=== PATIENT | male | born 1985 | race Caucasian/White ===

== ENCOUNTER 2019-06-20 23:56 | Emergency (ER) | payer SELFPAY ==
--- NOTE | 2019-06-21 01:10 | EDPHYS ---
Physician Documentation [facility] Name: Anthony Adams Age: 33 yrs Sex: Male : 1985 Arrival Date: 06/21/2019 Time: 00:06 Bed 18 Private MD: DEON Physician Minesh Lewis HPI: 06/21 01:03 This 33 yrs old Male presents to ER via Ambulatory with complaints of Ear cp Pain. 01:03 The patient presents with pain, that is acute, tenderness. The complaints affect the cp left ear. Onset: The symptoms/episode began/occurred today, about 1200. Associated signs and symptoms: Pertinent positives: sinus congestion and drainage, sore throat, cough. Severity of symptoms: in the emergency department the symptoms are unchanged despite home interventions. Historical: - Allergies: 00:07 No Known Allergies; lp1 - Home Meds: 00:07 Claritin 10 mg Oral tab 1 tab once daily [Active]; lp1 - PMHx: 00:07 seasonal allergies; ADD/ADHD; lp1 - PSHx: 00:07 None; lp1 - Immunization history:: Adult Immunizations up to date. - Social history:: Smoking status: Patient/guardian denies using tobacco. - Ebola Screening: : No symptoms or risks identified at this time. ROS: 01:04 Eyes: Negative for injury, pain, redness, and discharge. cp 01:04 Constitutional: Negative for body aches, chills, fever, poor PO intake. 01:04 ENT: Positive for ear pain, sinus congestion, sore throat, Negative for drainage from ear(s), difficulty swallowing, difficulty handling secretions. 01:04 Neck: Negative for pain with movement, pain at rest, stiffness, swollen nodes, tenderness. 01:04 Respiratory: Positive for cough, Negative for shortness of breath, wheezing. 01:04 Abdomen/GI: Negative for abdominal pain, nausea, vomiting, and diarrhea, constipation. 01:04 Skin: Negative for rash. 01:04 Neuro: Negative for headache. 01:04 All other systems are negative. Exam: 01:05 Head/Face: Normocephalic, atraumatic. cp 01:05 Constitutional: The patient appears in no acute distress, alert, awake, non-toxic, well developed, well nourished. 01:05 Eyes: Periorbital structures: appear normal, Conjunctiva: normal, no exudate, no injection, Lids and lashes: appear normal, bilaterally. 01:05 ENT: External ear(s): are unremarkable, Ear canal(s): are normal, clear, TM's: bulging, on the left, erythema, that is marked, on the left, Examination of the other ear shows no obvious abnormality, Nose: is normal, Mouth: Lips: moist, Oral mucosa: pink and intact, moist, Posterior pharynx: is normal, airway is patent, no erythema, no exudate, Tonsils: are normal in appearance, Voice: is normal. 01:05 Neck: ROM/movement: is normal, is supple, without pain, no meningismus, no nuchal rigidity. 01:05 Chest/axilla: Inspection: normal. 01:05 Cardiovascular: Rate: normal, Rhythm: regular. 01:05 Respiratory: the patient does not display signs of respiratory distress, Respirations: normal, no use of accessory muscles, no retractions, no splinting, no tachypnea, labored breathing, is not present, Breath sounds: are clear throughout, no decreased breath sounds, no stridor, no wheezing. 01:05 Abdomen/GI: Exam negative for discomfort, distension, guarding, Inspection: abdomen appears normal. 01:05 Skin: no rash present. Vital Signs: 00:07 BP 125 / 79; Pulse 62; Resp 16; Temp 98.1(O); Pulse Ox 99% on R/A; Weight 77.11 kg (R); lp1 Height 5 ft. 10 in. (177.80 cm); Pain 9/10; 00:07 Body Mass Index 24.39 (77.11 kg, 177.80 cm) lp1 MDM: 00:49 Patient medically screened. cp 01:07 Differential diagnosis: otitis media, otitis externa, ruptured TM, sinusitis, strep cp throat. Data reviewed: vital signs, nurses notes. Response to treatment: the patient's symptoms have markedly improved after treatment, and as a result, I will discharge patient. Administered Medications: 01:15 Drug: Augmentin 875 mg Route: PO; fc 01:25 Follow up: Response: No adverse reaction cr4 01:15 Drug: Ibuprofen 800 mg Route: PO; fc 01:24 Follow up: Response: No adverse reaction cr4 Disposition: 06/21/19 01:08 Discharged to Home. Impression: Otitis media, unspecified, left ear. - Condition is Stable. - Discharge Instructions: Otitis Media, Adult. - Prescriptions for Augmentin 875- 125 mg Oral Tablet - take 1 tablet by ORAL route every 12 hours for 10 days; 20 tablet. Medrol (Kenneth) 4 mg Oral Tablets, Dose Pack - take 1 tablet by ORAL route as directed - follow package instructions; 1 packet. - Medication Reconciliation Form, Thank You Letter, Antibiotic Education, Prescription Opioid Use form. - Follow up: Private Physician; When: 2 - 3 days; Reason: Worsening of condition. - Problem is new. - Symptoms have improved. Addendum: 06/23/2019 08:40 Co-signature as Attending Physician, Minesh Lewis MD I agree with the assessment and c bazan plan of care. Signatures: Minesh Lewis MD MD cha Chretien, Felicia RN RN fc Rohini Birch RN RN cr4 Margareth Larose RN RN lp1 Minesh Wei PA PA cp Corrections: (The following items were deleted from the chart) 06/21 01:26 01:08 06/21/2019 01:08 Discharged to Home. Impression: Otitis media, unspecified, left cr4 ear. Condition is Stable. Forms are Medication Reconciliation Form, Thank You Letter, Antibiotic Education, Prescription Opioid Use. Follow up: Private Physician; When: 2 - 3 days; Reason: Worsening of condition. Problem is new. Symptoms have improved. cp
--- NOTE | 2019-06-21 01:10 | ER ---
Nurse's Notes [facility] Name: Anthony Adams Age: 33 yrs Sex: Male : 1985 Arrival Date: 06/21/2019 Time: 00:06 Bed 18 Private MD: Diagnosis: Otitis media, unspecified, left ear Presentation: 06/21 00:06 Presenting complaint: Patient states: Left ear pain that has worsened throughout day; lp1 congestion, runny nose, sore throat since Sunday. Transition of care: patient was not received from another setting of care. Onset of symptoms was June 21, 2019. Risk Assessment: Do you want to hurt yourself or someone else? Patient reports no desire to harm self or others. Initial Sepsis Screen: Does the patient meet any 2 criteria? No. Patient's initial sepsis screen is negative. Does the patient have a suspected source of infection? No. Patient's initial sepsis screen is negative. Care prior to arrival: None. 00:06 Method Of Arrival: Ambulatory lp1 00:06 Acuity: DOMINGO 4 lp1 Historical: - Allergies: 00:07 No Known Allergies; lp1 - Home Meds: 00:07 Claritin 10 mg Oral tab 1 tab once daily [Active]; lp1 - PMHx: 00:07 seasonal allergies; ADD/ADHD; lp1 - PSHx: 00:07 None; lp1 - Immunization history:: Adult Immunizations up to date. - Social history:: Smoking status: Patient/guardian denies using tobacco. - Ebola Screening: : No symptoms or risks identified at this time. Screenin:09 Abuse screen: Denies threats or abuse. Denies injuries from another. Nutritional lp1 screening: No deficits noted. Tuberculosis screening: No symptoms or risk factors identified. Fall Risk None identified. Assessment: 00:59 General: Appears uncomfortable, slender, well groomed, Behavior is calm, cooperative, cr4 appropriate for age. Neuro: Denies weakness dizziness, difficulty swallowing, numbness headache. Cardiovascular: Denies chest pain, fatigue, lightheadedness, nausea, shortness of breath. Respiratory: Reports cough that is productive, hacking. GI: No signs and/or symptoms were reported involving the gastrointestinal system. : No signs and/or symptoms were reported regarding the genitourinary system. EENT: Reports decreased hearing in left ear nasal congestion nasal discharge pain in left ear. Derm: No deficits noted. Musculoskeletal: No signs and/or symptoms reported regarding the musculoskeletal system. Vital Signs: 00:07 BP 125 / 79; Pulse 62; Resp 16; Temp 98.1(O); Pulse Ox 99% on R/A; Weight 77.11 kg (R); lp1 Height 5 ft. 10 in. (177.80 cm); Pain 9/10; 00:07 Body Mass Index 24.39 (77.11 kg, 177.80 cm) lp1 ED Course: 00:06 Patient arrived in ED. ag3 00:06 Triage completed. lp1 00:06 Arm band placed on left wrist. lp1 00:46 Minesh Wei PA is PHCP. cp 00:46 Minesh Lewis MD is Attending Physician. cp 01:22 Patient has correct armband on for positive identification. Bed in low position. cr4 01:22 No provider procedures requiring assistance completed. Patient did not have IV access cr4 during this emergency room visit. Administered Medications: 01:15 Drug: Augmentin 875 mg Route: PO; fc 01:25 Follow up: Response: No adverse reaction cr4 01:15 Drug: Ibuprofen 800 mg Route: PO; fc 01:24 Follow up: Response: No adverse reaction cr4 Outcome: 01:08 Discharge ordered by . cp 01:22 Discharged to home ambulatory. cr4 01:22 Condition: stable 01:22 Discharge instructions given to patient, Instructed on discharge instructions, follow up and referral plans. medication usage, Demonstrated understanding of Prescriptions given X 2. 01:26 Patient left the ED. cr4 Signatures: Corin Avila RN RN Rohini Birch RN RN cr4 Margareth Larose RN RN 1 Minesh Wei PA PA cp Laurel Snowden ag3
[2019-06-21] MEDS ORDERED: IBUPROFEN 400 MG TAB ONE (01:13)
[2019-06-21] MEDS ORDERED: AMOX/K CLAV 875 MG TAB ONE (01:13)
== END 2019-06-21 01:26 | disposition home or self-care (01) ==
LOC: ER 23:56
DX: H66.92 Otitis media, unspecified, left ear (principal); J30.2 Other seasonal allergic rhinitis
CPT/HCPCS: 99283

== ENCOUNTER 2022-03-27 16:49 | Emergency (ER) | payer SELFPAY ==
--- NOTE | 2022-03-27 17:32 | ER ---
Nurse's Notes [facility] Name: Anthony Adams Age: 36 yrs Sex: Male : 1985 Arrival Date: 03/27/2022 Time: 16:52 Bed Waiting Private MD: Diagnosis: ED Course: 03/27 16:52 Patient arrived in ED. am2 Administered Medications: No medications were administered Outcome: 17:32 Patient left the ED. iw Signatures: Harriet Mendoza RN RN iw Bhargavi Perdomo am2
== END 2022-03-27 17:32 | disposition left against medical advice (07) ==
LOC: ER 16:49
DX: Z02.9 Encounter for administrative examinations, unspecified (principal)

== ENCOUNTER 2024-01-23 03:30 | Emergency (ER) | payer BC ==
--- NOTE | 2024-01-23 06:42 | ER ---
Nurse's Notes [facility] Name: Anthony Adams Age: 38 yrs Sex: Male : 1985 Arrival Date: 01/23/2024 Time: 03:30 Bed 20 Private MD: Diagnosis: Cellulitis of right lower limb;Right lower leg cellulitis Presentation: 01/22 03:40 Chief complaint: Patient states: pain and swelling to the right knee since Sunday. rv diagnosed with cellulitis in urgent care then prescribed with Bactrim and Keflex. finished the treatment yesterday. pain and swelling is not healing. Coronavirus screen: At this time, the client does not indicate any symptoms associated with coronavirus-19. Ebola Screen: No symptoms or risks identified at this time. Initial Sepsis Screen: Does the patient meet any 2 criteria? No. Patient's initial sepsis screen is negative. Does the patient have a suspected source of infection? No. Patient's initial sepsis screen is negative. Risk Assessment: Do you want to hurt yourself or someone else? Patient reports no desire to harm self or others. Onset of symptoms was January 16, 2024. 03:40 Method Of Arrival: Ambulatory rv 03:40 Acuity: DOMINGO 3 rv Triage Assessment: 03:42 General: Appears uncomfortable, Behavior is calm, cooperative. Pain: Complains of pain rv in right leg. Neuro: Level of Consciousness is awake, alert, obeys commands, Oriented to person, place, time, situation. Cardiovascular: Capillary refill < 3 seconds Patient's skin is warm and dry. Respiratory: Airway is patent Respiratory effort is even, unlabored, Breath sounds are clear bilaterally. GI: No signs and/or symptoms were reported involving the gastrointestinal system. : No signs and/or symptoms were reported regarding the genitourinary system. Derm: Skin is intact. Musculoskeletal: Swelling present in right knee. Historical: - Allergies: 03:42 No Known Allergies; rv - PMHx: 03:42 ADD/ADHD; seasonal allergies; rv - PSHx: 03:42 None; rv - Immunization history:: Adult Immunizations up to date. - Infectious Disease History:: Denies. - Social history:: Smoking status: Patient denies any tobacco usage or history of. - Family history:: not pertinent. Screenin:44 [facility] ED Fall Risk Assessment (Adult) History of falling in the last 3 months, rv including since admission No falls in past 3 months (0 pts) Score/Fall Risk Level 0 - 2 = Low Risk Oriented to surroundings, Maintained a safe environment, Educated pt \T\ family on fall prevention, incl call for assistance when getting out of bed, Assessed \T\ reinforced patient's understanding of fall precautions. Abuse screen: Denies threats or abuse. Denies injuries from another. Nutritional screening: No deficits noted. Tuberculosis screening: No symptoms or risk factors identified. Vital Signs: 03:40 BP 142 / 89; Pulse 83; Resp 17; Temp 98; Pulse Ox 100% ; Weight 78.93 kg; Height 5 ft. rv 10 in. ; 06:09 BP 132 / 91; Pulse 72; Resp 18; Temp 98; Pulse Ox 99% on R/A; rv 03:40 Body Mass Index 24.97 (78.93 kg, 177.8 cm) rv ED Course: 03:33 Patient arrived in ED. gm2 03:40 Behzad Trinh MD is Attending Physician. sp4 03:40 Louis Rodriguez RN is Primary Nurse. rv 03:42 Triage completed. rv 03:42 Arm band placed on right wrist. rv 03:44 Patient has correct armband on for positive identification. Client placed on continuous rv cardiac and pulse oximetry monitoring. NIBP monitoring applied. 03:44 No provider procedures requiring assistance completed. rv 04:29 Initial lab(s) drawn, by nm, sent to lab. Inserted saline lock: 20 gauge in right rv forearm, using aseptic technique. Blood collected. 06:09 IV discontinued, intact, bleeding controlled, No redness/swelling at site. Pressure rv dressing applied. Administered Medications: 04:28 Drug: Rocephin - Rocephin (cefTRIAXone) IVPB 1 grams IVPB once over 30 mins; (mix in 50 rv mL NS) Route: IVPB; Infused Over: 30 mins; Site: right forearm; 06:08 Follow up: Response: No adverse reaction; IV Status: Completed infusion rv 04:28 Drug: vancoMYCIN IVPB 1 grams IVPB once over 2 hrs Route: IVPB; Infused Over: 2 hrs; rv Site: right forearm; 06:08 Follow up: IV Status: Completed infusion; IV Intake: 250ml rv 04:28 Drug: Ketorolac IVP 30 mg IVP once Route: IVP; Site: right forearm; rv 06:08 Follow up: Response: No adverse reaction; Marked relief of symptoms rv Medication: 03:44 VIS not applicable for this client. rv Intake: 06:08 IV: 250ml; Total: 250ml. rv Outcome: 06:02 Discharge ordered by MD. matute 06:09 Discharged to home ambulatory, rv 06:09 Condition: good 06:09 Discharge instructions given to patient, Instructed on discharge instructions, follow up and referral plans. medication usage, Demonstrated understanding of instructions, follow-up care, medications, Prescriptions given X 2, 06:09 Patient left the ED. rv Signatures: Louis Rodriguez RN RN Behzad Walton MD MD sp4 Saadia Garay 2
--- NOTE | 2024-01-23 06:42 | EDPHYS ---
Physician Documentation [facility] Name: Anthony Adams Age: 38 yrs Sex: Male : 1985 Arrival Date: 01/23/2024 Time: 03:30 Bed 20 Private MD: ED Physician Behzad Trinh HPI: 01/22 03:52 This 38 yrs old Male presents to ER via Ambulatory with complaints of Knee sp4 Pain. 04:08 38-year-old male presents with right lower leg pain redness swelling and discomfort. sp4 Patient has area of redness and cellulitis just inferior to the right knee. Patient states pain and redness have occurred 7 days ago. 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 Patient was prescribed 7 days of cephalexin and Bactrim in [place] which he has finished. Morning pain and redness have intensified and patient came into the emergency room.. Historical: - Allergies: 03:42 No Known Allergies; rv - PMHx: 03:42 ADD/ADHD; seasonal allergies; rv - PSHx: 03:42 None; rv - Immunization history:: Adult Immunizations up to date. - Infectious Disease History:: Denies. - Social history:: Smoking status: Patient denies any tobacco usage or history of. - Family history:: not pertinent. ROS: 04:08 Constitutional: Negative for fever, chills, and weight loss, Positive Right lower leg sp4 pain and redness 04:08 All other systems are negative, Exam: 04:08 Constitutional: This is a well developed, well nourished patient who is awake, alert, sp4 and in no acute distress. Head/Face: Normocephalic, atraumatic. Eyes: Pupils equal round and reactive to light, extra-ocular motions intact. Lids and lashes normal. Conjunctiva and sclera are not injected. Cornea within normal limits. Periorbital areas with no swelling, redness, or edema. ENT: Nares patent. No nasal discharge, no septal abnormalities noted. Tympanic membranes are normal and external auditory canals are clear. Oropharynx with no redness, swelling, or masses, exudates, or evidence of obstruction, uvula midline. Mucous membranes moist. Neck: Trachea midline, no thyromegaly or masses palpated, and no cervical lymphadenopathy. Supple, full range of motion without nuchal rigidity, or vertebral point tenderness. Chest/axilla: Normal chest wall appearance and motion. Nontender with no deformity. No lesions are appreciated. Cardiovascular: Regular rate and rhythm with a normal S1 and S2. No gallops, murmurs, or rubs. Normal PMI, no JVD. No pulse deficits. Respiratory: Lungs have equal breath sounds bilaterally, clear to auscultation and percussion. No rales, rhonchi or wheezes noted. No increased work of breathing, no retractions or nasal flaring. Abdomen/GI: Soft, with normal bowel sounds. No distension or tympany. No guarding or rebound. No evidence of tenderness throughout. Back: No spinal tenderness. No costovertebral tenderness. Skin: Warm, dry with normal turgor. Normal color with no rashes, no lesions, and no evidence of cellulitis. MS/ Extremity: Pulses equal, no cyanosis. Neurovascular intact. Full, normal range of motion. Positive cellulitis significant area of cellulitis just inferior to the right knee. No sign of septic joint, no sign of right knee effusion, normal right knee range of motion. Intact peripheral pulses. No sign of drainable abscess. Significant area of right lower extremity anterior located cellulitis. Neuro: Awake and alert, GCS 15, oriented to person, place, time, and situation. Cranial nerves II-XII grossly intact. Motor strength 5/5 in all extremities. Sensory grossly intact. Psych: Awake, alert, with orientation to person, place and time. Behavior, mood, and affect are within normal limits Vital Signs: 03:40 BP 142 / 89; Pulse 83; Resp 17; Temp 98; Pulse Ox 100% ; Weight 78.93 kg; Height 5 ft. rv 10 in. ; 06:09 BP 132 / 91; Pulse 72; Resp 18; Temp 98; Pulse Ox 99% on R/A; rv 03:40 Body Mass Index 24.97 (78.93 kg, 177.8 cm) rv MDM: 03:40 Patient medically screened. sp4 05:58 Differential diagnosis: abscess, allergic reaction, cellulitis, insect bite. Data sp4 reviewed: vital signs, nurses notes. ED course: Patient has no signs of diabetes. Labs today are unremarkable. Stable for discharge home with extended course of antibiotics. . 06:03 ED course: Patient will be prescribed extended course of antibiotics next 20 days. sp4 Return to ER precautions discussed extensively with the patient. . 01/22 03:52 Order name: IV Saline Lock; Complete Time: 04:28 sp4 01/22 03:52 Order name: Labs collected and sent; Complete Time: : sp4 Administered Medications: 04:28 Drug: Rocephin - Rocephin (cefTRIAXone) IVPB 1 grams IVPB once over 30 mins; (mix in 50 rv mL NS) Route: IVPB; Infused Over: 30 mins; Site: right forearm; 06:08 Follow up: Response: No adverse reaction; IV Status: Completed infusion rv 04:28 Drug: vancoMYCIN IVPB 1 grams IVPB once over 2 hrs Route: IVPB; Infused Over: 2 hrs; rv Site: right forearm; 06:08 Follow up: IV Status: Completed infusion; IV Intake: 250ml rv 04:28 Drug: Ketorolac IVP 30 mg IVP once Route: IVP; Site: right forearm; rv 06:08 Follow up: Response: No adverse reaction; Marked relief of symptoms rv Disposition Summary: 01/23/24 06:02 Discharge Ordered Notes: Location: Home sp4 Problem: new sp4 Symptoms: have improved sp4 Condition: Stable sp4 Diagnosis - Cellulitis of right lower limb sp4 - Right lower leg cellulitis sp4 Followup: sp4 - With: Private Physician - When: 7 - 10 days - Reason: Recheck today's complaints Discharge Instructions: - Discharge Summary Sheet sp4 - Cellulitis, Adult, [id number] sp4 Forms: - Patient Portal Instructions sp4 Prescriptions: - Cephalexin 500 mg Oral capsule - take 1 capsule ORAL route every 6 hours for 20 days; 80 capsule; Refills: 0, sp4 Product Selection Permitted - Bactrim DS 800-160 mg Oral tablet - take 1 tablet ORAL route every 12 hours for 20 days; 40 tablet; Refills: 0, sp4 Product Selection Permitted Signatures: Louis Rodriguez RN RN Behzad Walton MD MD sp4
[2024-01-23 07:12] LABS: Absolute Basophils 0.1 K/uL (0-0.5); Absolute Eosinophils 0.3 K/uL (0-0.5); Absolute Monocytes 1.1 K/uL (0.1-1.3); Absolute Neutrophil 6.8 K/uL (1.8-8.0); Albumin 3.6 g/dL (3.4-5.0); Albumin/Globulin Ratio 0.9 (1.1-1.8); Anion Gap 8.7 mEq/L (5.0-15.0); Basophils % 0.7 % (0-1.3); Bilirubin Total 0.4 mg/dL (0.2-1.0); Eosinophils % 3.4 % (0-4.4); Globulin 3.9 g/dL (2.3-3.5); Hematocrit 37.3 % (39.6-49.0); Lymphocytes % 19.6 % (15.3-44.8); MCH 30.8 pg (27.0-35.0); MCHC 34.8 g/dL (32.0-36.0); MCV 88.6 fL (80-100); MPV 8.9 fL (7.6-11.3); Monocytes % 10.2 % (3.3-12.3); Neutrophils % 66.1 % (41.7-73.7); Nucleated RBC Absolute Count 0.1 (0-0); Nucleated Red Blood Cells % 0.6 % (0-0); Platelets 341 thou/uL (152-406); Potassium 3.7 mEq/L (3.5-5.1); Protein, Total 7.5 g/dL (6.4-8.2); RBC Red Blood Cell Count 4.21 M/uL (4.33-5.43); Red Cell Distribution Width 12.8 % (12.1-15.2)
[2024-01-23 16:29] VITALS: BP 132/91; TEMP 98; O2SAT 99
== END 2024-01-23 06:09 | disposition home or self-care (01) ==
LOC: ER 03:30
DX: L03.115 Cellulitis of right lower limb (principal)
CPT/HCPCS: 36415; 80053; 85025

== ENCOUNTER 2024-11-01 16:25 | Inpatient (IN) | payer OTHER ==
[2024-11-01 17:58] LABS: Specific Gravity > 1.030 (1.005-1.030); Sqamous Epithelial <5 /HPF (None Seen); Urine Bacteria <20 /HPF (<20); Urine Bilirubin NEGATIVE (Negative); Urine Blood Negative (Negative); Urine Clarity Extremely Turbid (Clear); Urine Color Yellow (Yellow); Urine Crystals Unidentified Few /HPF (None Seen); Urine Culture Reflex Order REFLEXED; Urine Glucose NEGATIVE (Negative); Urine Ketones NEGATIVE (Negative); Urine Micro Reflex YN NO BILL MICROSCOPIC; Urine Mucus 1+ /HPF (None Seen); Urine Nitrite NEGATIVE (Negative); Urine Protein 1+ (Negative); Urine RBC <5 /HPF (None Seen); Urine Urobilinogen 1+ (Normal); Urine WBC 20-50 /HPF (<5); Urine WBC Clump Few /HPF (None Seen); Urine Yeast (Budding) Many /HPF (None Seen); Urine pH 7.5 (5.0-7.0)
[2024-11-01 18:02] LABS: Absolute Eosinophils 0.1 K/uL (0-0.5); Absolute Lymphocytes (CBC) 1.3 K/uL (0.7-4.9); Absolute Monocytes 0.5 K/uL (0.1-1.3); Absolute Neutrophil 4.9 K/uL (1.8-8.0); Basophils % 0.6 % (0-1.3); Eosinophils % 1.7 % (0-4.4); Hemoglobin 16.7 g/dL (13.6-17.9); Lymphocytes % 19.1 % (15.3-44.8); MCH 31.2 pg (27.0-35.0); MCHC 35.6 g/dL (32.0-36.0); MCV 87.6 fL (80-100); MPV 9.9 fL (7.6-11.3); Monocytes % 6.9 % (3.3-12.3); Neutrophils % 71.7 % (41.7-73.7); Nucleated RBC Absolute Count 0.1 (0-0); Nucleated Red Blood Cells % 0.8 % (0-0); Platelets 222 thou/uL (152-406); RBC Red Blood Cell Count 5.37 M/uL (4.33-5.43); Red Cell Distribution Width 12.6 % (12.1-15.2)
[2024-11-01] MEDS ORDERED: MECLIZINE HCL 12.5 MG TAB ONE (18:02)
[2024-11-01] MEDS ORDERED: METOCLOPRAMIDE 10 MG/2mL INJ ONE (18:02)
[2024-11-01] MEDS ORDERED: DIPHENHYDRAMINE 50 MG/ML VIAL ONE (18:02)
[2024-11-01] MEDS ORDERED: NA CHLORIDE 0.9% 1,000 ML ONE (18:03)
[2024-11-01 18:07] LABS: Barbiturates NEGATIVE (NEGATIVE); Benzodiazepines NEGATIVE (NEGATIVE); Cocaine NEGATIVE (NEGATIVE); METHAMPHETAM NEGATIVE (NEGATIVE); Methadone NEGATIVE (NEGATIVE); Opiates NEGATIVE (NEGATIVE); Phencyclidine NEGATIVE (NEGATIVE); THC Cannibis NEGATIVE (NEGATIVE)
[2024-11-01 18:14] LABS: Albumin 3.9 g/dL (3.4-5.0); Bilirubin Direct 0.3 mg/dL (0-0.2); Bilirubin Indirect, Calculated 1.8 mg/dL (0.2-0.8); Bilirubin Total 2.1 mg/dL (0.2-1.0); Globulin 3.9 g/dL (2.3-3.5); Magnesium 2.2 mg/dL (1.6-2.4); Protein, Total 7.8 g/dL (6.4-8.2)
[2024-11-01 18:16] LABS: Troponin High Sensitivity 84.8 pg/mL (<58.9)
--- NOTE | 2024-11-01 18:35 | RAD REPORT ---
EXAM: CT brain without contrast HISTORY: Dizziness COMPARISON: None TECHNIQUE: Multiple contiguous axial images were obtained and a CT of the brain without contrast.. Sagittal and coronal reconstruction performed. Automated exposure control, adjustment of the mA and/or kV according to patient size, and/or iterative reconstruction. Unless otherwise specified, incidental f indings do not require dedicated imaging follow-up FINDINGS: An intracranial bleed is not seen Ventricles are normal caliber No extra-axial fluid collection noted No significant hypodensity within the brain Mild chronic ethmoid sinusitis IMPRESSION: No acute intracranial abnormality noted. If the patient continues to have symptoms to suggest an acute intracranial abnormality then MRI of th e brain would be recommended.
[2024-11-01] MEDS ORDERED: CEFTRIAXONE 1000 MG/VIAL ONE (18:59)
[2024-11-01] MEDS ORDERED: ASPIRIN 81 MG CHEWABLE TABLET ONE (19:00)
--- NOTE | 2024-11-01 19:10 | RAD REPORT ---
Procedure: Chest Single View HISTORY: Chills. Dizziness COMPARISON: none FINDINGS: The lungs appear clear of acute infiltrate. No significant pleural effusion noted. The heart is normal size. IMPRESSION: No acute abnormality is displayed.
--- NOTE | 2024-11-01 19:20 | ER ---
Nurse's Notes [facility] Name: Anthony Adams Age: 39 yrs Sex: Male : 1985 Arrival Date: 11/01/2024 Time: 16:25 Bed 20 Private MD: Diagnosis: Abnormal results of function studies of other organs and systems-elevated troponin;Dizziness and giddiness;Nausea with vomiting, unspecified;UTI/ Urinary tract infection, site not specified Presentation: 11/01 16:58 Chief complaint: Patient states: since night I've been getting chills, sweats, ko1 nauseated, dizzy, disoriented. Coronavirus screen: At this time, the client does not indicate any symptoms associated with coronavirus-19. Ebola Screen: No symptoms or risks identified at this time. Initial Sepsis Screen: Does the patient meet any 2 criteria? No. Patient's initial sepsis screen is negative. Does the patient have a suspected source of infection? No. Patient's initial sepsis screen is negative. Risk Assessment: Do you want to hurt yourself or someone else? Patient reports no desire to harm self or others. Onset of symptoms is unknown. 16:58 Method Of Arrival: Ambulatory ko1 16:58 Acuity: DOMINGO 3 ko1 Triage Assessment: 17:02 General: Appears in no apparent distress. ill, Behavior is calm, cooperative, ko1 appropriate for age. Pain: Complains of pain in head pressure. GI: Reports nausea, vomiting. Historical: - Allergies: 17:02 No Known Allergies; ko1 - PMHx: 17:02 ADD/ADHD; seasonal allergies; ko1 - PSHx: 17:02 None; ko1 - Immunization history:: Adult Immunizations unknown. - Infectious Disease History:: Denies. - Social history:: Smoking status: Patient denies any tobacco usage or history of. Screenin:22 [facility] ED Fall Risk Assessment (Adult) History of falling in the last 3 months, kj2 including since admission No falls in past 3 months (0 pts) Confusion or Disorientation No (0 pts) Intoxicated or Sedated No (0 pts) Impaired Gait No (0 pts) Mobility Assist Device Used No (0 pt) Altered Elimination No (0 pt) Score/Fall Risk Level 0 - 2 = Low Risk Maintained a safe environment, Hourly rounding (assess needs \T\ fall precautionary measures) done. Abuse screen: Denies threats or abuse. Denies injuries from another. Nutritional screening: No deficits noted. Tuberculosis screening: No symptoms or risk factors identified. Assessment: 17:19 General: Appears in no apparent distress. Behavior is cooperative. Pain: Complains of kj2 pain in abdomen Pain currently is 5 out of 10 on a pain scale. Neuro: Level of Consciousness is awake, alert, obeys commands, Oriented to person, place, time, situation. Cardiovascular: Patient's skin is warm and dry. Respiratory: Airway is patent Respiratory effort is even, unlabored. GI: Abdomen is. : No signs and/or symptoms were reported regarding the genitourinary system. 18:12 Reassessment: Patient appears in no apparent distress at this time. Patient and/or kj2 family updated on plan of care and expected duration. Pain level reassessed. Patient is alert, oriented x 3, equal unlabored respirations, skin warm/dry/pink. 19:08 Reassessment: Patient appears in no apparent distress at this time. Patient and/or kj2 family updated on plan of care and expected duration. Pain level reassessed. Patient is alert, oriented x 3, equal unlabored respirations, skin warm/dry/pink. 20:00 Reassessment: Patient appears in no apparent distress at this time. Patient and/or kj2 family updated on plan of care and expected duration. Pain level reassessed. Patient is alert, oriented x 3, equal unlabored respirations, skin warm/dry/pink. 21:08 Reassessment: Patient appears in no apparent distress at this time. Patient and/or kj2 family updated on plan of care and expected duration. Pain level reassessed. Patient is alert, oriented x 3, equal unlabored respirations, skin warm/dry/pink. Vital Signs: 16:58 BP 118 / 82; Pulse 61; Resp 16; Temp 97.2; Pulse Ox 99% ; ko1 17:20 BP 113 / 79; Pulse 62; Resp 20; Pulse Ox 100% ; kj2 18:12 BP 123 / 85; Pulse 75; Resp 18; Pulse Ox 100% on R/A; kj2 19:08 BP 119 / 86; Pulse 57; Resp 20; Pulse Ox 98% on R/A; kj2 20:00 BP 116 / 80; Pulse 56; Resp 18; Pulse Ox 98% on R/A; kj2 Visual Acuity: 20:00 Left Eye Visual acuity 20/20, Normal, React To Light; Right Eye Visual acuity 20/20, kj2 Normal, React To Light; Both Eyes Visual acuity 20/20; Without Lenses; ED Course: 16:27 Patient arrived in ED. mr 17:02 Minesh Wei PA is PHCP. cp 17:02 Ronald Purvis MD is Attending Physician. cp 17:02 Triage completed. ko1 17:02 Arm band placed on right wrist. Patient placed in an exam room, on a stretcher, on ko1 pulse oximetry, Patient notified of wait time. 17:18 Kristen Saeed, STACY is Primary Nurse. kj2 17:24 Patient has correct armband on for positive identification. Provided Education on: call kj2 light. 17:40 Inserted saline lock: 20 gauge in right antecubital area, using aseptic technique. kj2 Blood collected. Flushed with 10 mL NS. 18:15 CT Head Brain wo Cont In Process Unspecified. EDMS 19:00 Initial lab(s) drawn, by me, sent to lab. First set of blood cultures drawn. oe 19:00 Inserted saline lock: 20 gauge in right wrist, using aseptic technique. Blood oe collected. Flushed with 10 mL NS. 19:03 XRAY Chest (1 view) In Process Unspecified. EDMS 19:16 Lily Jackson MD is Hospitalizing Provider. cp 19:16 Second set of blood cultures drawn by me. oe 19:21 Blood Culture Adult (2) Sent. oe 21:18 Influenza Screen (a \T\ B) Sent. kj2 21:18 SARS RAPID Sent. kj2 22:03 No provider procedures requiring assistance completed. Patient admitted, IV remains in kj2 place. Administered Medications: 18:11 Drug: Meclizine PO 25 mg PO once Route: PO; kj2 21:20 Follow up: Response: No adverse reaction kj2 18:11 Drug: metoCLOPramide IVP 10 mg IVP once; over 1 to 2 minutes Route: IVP; Site: right kj2 antecubital; 21:20 Follow up: Response: No adverse reaction kj2 18:11 Drug: diphenhydrAMINE IVP 12.5 mg IVP once Route: IVP; Site: right antecubital; kj2 21:20 Follow up: Response: No adverse reaction kj2 18:11 Drug: NS 0.9% IV 1000 ml IV at 1000 ml once; to be given as a bolus over 60 minutes kj2 Route: IV; Rate: 1000 ml; Site: right antecubital; 19:11 Follow up: IV Status: Completed infusion; IV Intake: 1000ml kj2 21:21 Follow up: Response: No adverse reaction kj2 19:03 Drug: Aspirin PO Chewable Tablet 324 mg PO once; 81 mg tablets x 4 Route: PO; kj2 21:18 Follow up: Response: No adverse reaction kj2 19:28 Drug: Rocephin IV 1 grams IV at calculated rate once; Given slow IV push per pharmacy kj2 instructions Route: IV; Rate: calculated rate; Site: right forearm; 21:19 Follow up: Response: No adverse reaction kj2 Medication: 17:24 VIS not applicable for this client. kj2 Intake: 19:11 IV: 1000ml; Total: 1000ml. kj2 Outcome: 19:19 Decision to Hospitalize by Provider. cp 22:03 Admitted to Med/surg accompanied by tech, via wheelchair, kj2 22:03 Condition: stable 22:03 Instructed on the need for admit, 22:05 Patient left the ED. kj2 Signatures: Dispatcher [employer] EDMS Delilah Chen, Reg Reg mr Minesh Wei, PA PA Brody Brennan Kathy RN RN ko1 Kristen Saeed RN RN kj2 Corrections: (The following items were deleted from the chart) 19:04 19:03 Rocephin IV 1 grams IV at calculated rate in right antecubital kj2 kj2 19:24 19:22 Inserted saline lock: 20 gauge in right wrist, using aseptic technique. Blood oe collected. Flushed with 10 mL NS oe
--- NOTE | 2024-11-01 19:20 | EDPHYS ---
Physician Documentation [facility] Name: Anthony Adams Age: 39 yrs Sex: Male : 1985 Arrival Date: 11/01/2024 Time: 16:25 Bed 20 Private MD: ED Physician Ronald Purvis HPI: 11/01 17:30 This 39 yrs old Male presents to ER via Ambulatory with complaints of Dizziness, Vision cp Problem, Nausea, Vomiting. 17:30 The patient presents with dizziness, feeling faint, lightheadedness. Onset: The cp symptoms/episode began/occurred 2 day(s) ago. 17:30 Context: just prior to the episode the patient experienced no apparent symptoms. cp Associated signs and symptoms: Pertinent positives: blurred vision, nausea, vomiting, Pertinent negatives: abdominal pain, chest pain, numbness. Historical: - Allergies: 17:02 No Known Allergies; ko1 - PMHx: 17:02 ADD/ADHD; seasonal allergies; ko1 - PSHx: 17:02 None; ko1 - Immunization history:: Adult Immunizations unknown. - Infectious Disease History:: Denies. - Social history:: Smoking status: Patient denies any tobacco usage or history of. ROS: 17:35 Constitutional: Negative for fever, poor PO intake, cp 17:35 ENT: Negative for injury, pain, and discharge, cp 17:35 Eyes: Positive for blurry vision, 17:35 Cardiovascular: Negative for chest pain, edema, palpitations, 17:35 Respiratory: Negative for cough, shortness of breath, wheezing, 17:35 Abdomen/GI: Negative for abdominal pain, vomiting, diarrhea, constipation, 17:35 : Negative for urinary symptoms, 17:35 Skin: Negative for cellulitis, rash, 17:35 Neuro: Positive for dizziness, Negative for altered mental status, seizure activity, speech changes, focal weakness, 17:35 All other systems are negative, Exam: 17:40 Constitutional: The patient appears in no acute distress, alert, awake, cp non-diaphoretic, non-toxic, well developed, well nourished, 17:40 Head/Face: Normocephalic, atraumatic. cp 17:40 Eyes: Periorbital structures: appear normal, Pupils: equal, round, and reactive to light and accomodation, Extraocular movements: intact throughout, Conjunctiva: normal, no exudate, no injection, Sclera: no appreciated abnormality, Lids and lashes: appear normal, bilaterally, 17:40 ENT: External ear(s): are unremarkable, Nose: is normal, Mouth: Lips: moist, Oral mucosa: moist, Posterior pharynx: Airway: no evidence of obstruction, patent, 17:40 Neck: ROM/movement: is normal, is supple, without pain, no range of motions limitations, no meningismus, 17:40 Chest/axilla: Inspection: normal, 17:40 Cardiovascular: Rate: normal, Rhythm: regular, Edema: is not appreciated, JVD: is not appreciated, 17:40 Respiratory: the patient does not display signs of respiratory distress, Respirations: normal, no use of accessory muscles, no retractions, labored breathing, is not present, Breath sounds: are clear throughout, no decreased breath sounds, no stridor, no wheezing, 17:40 Abdomen/GI: Inspection: abdomen appears normal, Palpation: abdomen is soft and non-tender, in all quadrants, 17:40 Back: pain, is absent, ROM is normal, 17:40 Neuro: Orientation: to person, place \T\ time. Mentation: is normal, Cerebellar function: is grossly normal, Motor: moves all fours, strength is normal, Sensation: is normal, 18:33 ECG was reviewed by the Attending Physician. Vital Signs: 16:58 BP 118 / 82; Pulse 61; Resp 16; Temp 97.2; Pulse Ox 99% ; ko1 17:20 BP 113 / 79; Pulse 62; Resp 20; Pulse Ox 100% ; kj2 18:12 BP 123 / 85; Pulse 75; Resp 18; Pulse Ox 100% on R/A; kj2 19:08 BP 119 / 86; Pulse 57; Resp 20; Pulse Ox 98% on R/A; kj2 20:00 BP 116 / 80; Pulse 56; Resp 18; Pulse Ox 98% on R/A; kj2 Visual Acuity: 20:00 Left Eye Visual acuity 20/20, Normal, React To Light; Right Eye Visual acuity 20/20, kj2 Normal, React To Light; Both Eyes Visual acuity 20/20; Without Lenses; MDM: 17:15 Medical Screening Exam initiated cp 18:00 Differential diagnosis: cardiac arrhythmia, CVA, GI bleed, hypovolemia, idiopathic cp dizziness, sepsis. 19:10 Data reviewed: vital signs, nurses notes, lab test result(s), EKG, radiologic studies, cp CT scan, plain films, and as a result, I will admit patient. 19:10 Management of patient was discussed with the following: Hospitalist: DR Jackson will cp admit after discussion. Independent interpretation of the following test(s) in the Emergency Department EKG: See my EKG interpretation above. 11/01 17:30 Order name: Basic Metabolic Panel; Complete Time: 18:18 11/01 18:40 Interpretation: Normal except: GFR 83. 11/01 17:30 Order name: CBC with Diff; Complete Time: 18:18 11/01 17:30 Order name: LFT's; Complete Time: 18:18 11/01 18:41 Interpretation: Normal except: BILIT 2.1; BILID 0.3; IBILI, CALC 1.8; GLOB 3.9; A/G 1.0. 11/01 17:30 Order name: Magnesium; Complete Time: 18:18 11/01 17:30 Order name: Troponin HS; Complete Time: 18:18 11/01 17:30 Order name: CK; Complete Time: 18:18 11/01 17:30 Order name: Urinalysis W/Microscopic; Complete Time: 18:18 11/01 18:41 Interpretation: Normal except: [facility] Extremely Turbid; Urine SG > 1.030; UPH 7.5; UPROT cp 1+; UUROB 1+; UWBC 20-50; UWBC Clump Few; BYST Many. 11/01 17:30 Order name: UDS; Complete Time: 18:18 11/01 18:02 Order name: Urine Culture [facility] 11/01 18:33 Order name: Influenza Screen (a \T\ B) 11/01 18:33 Order name: SARS RAPID 11/01 18:42 Order name: Lactate w/ 2H reflex if indic.; Complete Time: 20:15 11/01 20:16 Interpretation: Reviewed. 11/01 18:42 Order name: Blood Culture Adult (2) 11/01 19:55 Order name: Magnesium [facility] 11/01 19:55 Order name: Thyroid Stimulating Hormone [facility] 11/01 19:55 Order name: CBC with Automated Diff EDMS 11/01 19:55 Order name: CBC with Automated Diff ED[facility] 11/01 19:55 Order name: Comprehensive Metabolic Panel [facility] 11/01 19:55 Order name: Comprehensive Metabolic Panel [facility] 11/01 19:55 Order name: Troponin High Sensitivity [facility] 11/01 19:55 Order name: Troponin High Sensitivity [facility] 11/01 19:55 Order name: Troponin High Sensitivity [facility] 11/01 19:55 Order name: Troponin High Sensitivity [facility] 11/01 17:30 Order name: XRAY Chest (1 view); Complete Time: 20:15 cp 11/01 20:15 Interpretation: Report review. 11/01 17:30 Order name: CT Head Brain wo Cont; Complete Time: 18:40 cp 11/01 18:40 Interpretation: Report reviewed. 11/01 17:30 Order name: EKG; Complete Time: 17:31 11/01 17:30 Order name: Orthostatic Blood Pressure 11/01 17:30 Order name: Cardiac monitoring 11/01 17:30 Order name: EKG - Nurse/Tech; Complete Time: 19:22 11/01 17:30 Order name: IV Saline Lock; Complete Time: 19:21 cp 11/01 17:30 Order name: Labs collected and sent; Complete Time: 19:22 11/01 17:30 Order name: O2 Per Protocol; Complete Time: 19:22 11/01 17:30 Order name: O2 Sat Monitoring; Complete Time: 19:22 11/01 17:40 Order name: Visual Acuity; Complete Time: 21:18 cp EC:33 Rate is 63 beats/min. Rhythm is regular. UT interval is normal. QRS interval is normal. cp QT interval is normal. T waves are Inverted in lead aVR. Interpreted by me. Reviewed by me. Administered Medications: 18:11 Drug: Meclizine PO 25 mg PO once Route: PO; kj2 21:20 Follow up: Response: No adverse reaction kj2 18:11 Drug: metoCLOPramide IVP 10 mg IVP once; over 1 to 2 minutes Route: IVP; Site: right kj2 antecubital; 21:20 Follow up: Response: No adverse reaction kj2 18:11 Drug: diphenhydrAMINE IVP 12.5 mg IVP once Route: IVP; Site: right antecubital; kj2 21:20 Follow up: Response: No adverse reaction kj2 18:11 Drug: NS 0.9% IV 1000 ml IV at 1000 ml once; to be given as a bolus over 60 minutes kj2 Route: IV; Rate: 1000 ml; Site: right antecubital; 19:11 Follow up: IV Status: Completed infusion; IV Intake: 1000ml kj2 21:21 Follow up: Response: No adverse reaction kj2 19:03 Drug: Aspirin PO Chewable Tablet 324 mg PO once; 81 mg tablets x 4 Route: PO; kj2 21:18 Follow up: Response: No adverse reaction kj2 19:28 Drug: Rocephin IV 1 grams IV at calculated rate once; Given slow IV push per pharmacy kj2 instructions Route: IV; Rate: calculated rate; Site: right forearm; 21:19 Follow up: Response: No adverse reaction kj2 Disposition Summary: 11/01/24 19:19 Hospitalization Ordered Notes: Hospitalization Status: Inpatient Admission cp Provider: Lily Jackson cp Location: Telemetry/[facility] (Inpatient) cp Condition: Stable cp Problem: new cp Symptoms: have improved cp Bed/Room Type: Standard cp Room Assignment: 206(11/01/24 20:02) hw Diagnosis - Abnormal results of function studies of other organs and systems - elevated troponincp - Dizziness and giddiness cp - Nausea with vomiting, unspecified cp - UTI/ Urinary tract infection, site not specified cp Forms: - Medication Reconciliation Form cp - SBAR form cp - Leadership Thank You Letter cp Addendum: 11/04/2024 08:58 Co-signature as Attending Physician, Ronald Purvis MD I reviewed the patient's care r t provided by the Advanced Practice Provider and agree with the diagnosis and treatment plan. Signatures: Dispatcher [employer] EDMS Minesh Wei PA PA cp Tayler Rivera RN RN ko1 Ronald Purvis MD MD rt Kristen Saeed RN RN kj2 Aurora Stover Corrections: (The following items were deleted from the chart) 11/01 18:33 18:33 Influenza Screen (A \T\ B)+BA.LAB.BRZ ordered. EDMS EDMS 18:33 18:33 SARS-COV-2 Antigen Rapid+I.LAB.BRZ ordered. EDMS EDMS 18:43 18:43 LACTATE+C.LAB.BRZ ordered. EDMS EDMS 18:43 18:43 BLOOD CULTURE*+BA.LAB.BRZ ordered. EDMS EDMS 20:02 19:19 cp hw
--- NOTE | 2024-11-01 19:44 | P.HP ---
Certification for Inpatient With expected LOS: <2 Midnights Patient will require the following post-hospital care: None Practitioner: I am a practitioner with admitting privileges, knowledge of patient current condition, hospital course, and medical plan of care. Services: Services provided to patient in accordance with Admission requirements found in Title 42 Section 412.3 of the Code of Federal Regulations Patient History Date of Service: 11/01/24 Reason for admission: Dizziness History of Present Illness: 39-year-old male with past medical history of ADHD on Metadate daily presented for dizziness since the last 3 days, worse in the morning, associated with intermittent generalized headache. Patient denies any loss of consciousness. He admitted to nausea and vomiting since the last 1 day. He denies any hematemesis. He denies any chest pain or palpitation. He denies any abdominal pain. He denies any dysuria. He denies any similar symptoms in the past. On arrival in the ED he was noted with low heart rate in the 40s to 50s but sinus rhythm, EKG shows normal sinus rhythm at [address] segment elevation. Chest x-ray is normal. Head CT was negative. Laboratory workup shows normal CBC and BMP with elevated troponin of 84. Urinalysis positive for greater than 50 WBC consistent with UTI. Urine drug screen was negative. Patient has been admitted for UTI with dizziness and unexplained sinus bradycardia Allergies No Known Allergies Allergy (Verified 10/11/17 07:57) Home Medications: Codeine/APAP [Tylenol W/Codeine #3 tab] 2 tab PO Q6HP PRN 10/11/17 Loratadine/Pseudoephedrine [Claritin-D 24 Hour Tablet] 1 each PO DAILY 10/11/17 - Past Medical/Surgical History Has patient received pneumonia vaccine in the past: No Diabetic: No -: ADHD Past Surgical History: Patient denies surgical history - Social History Smoking Status: Never smoker Patient receptive to therapy: No Alcohol use: No CD- Drugs: No Caffeine use: No Place of Residence: Home Review of Systems General: Weakness Cardiovascular: Light Headedness Physical Examination - Physical Exam General: Alert, In no apparent distress, Oriented x3, Cooperative, Other (Young male, calm) HEENT: Atraumatic, Normocephalic, PERRLA Neck: Supple, 2+ carotid pulse no bruit, JVD not distended Respiratory: Clear to auscultation bilaterally, Normal air movement Cardiovascular: No edema, Normal pulses, Regular rate/rhythm, Normal S1 S2 Capillary refill: <2 Seconds Gastrointestinal: Normal bowel sounds, Soft and benign, Non-distended, No ascites Musculoskeletal: No clubbing, No swelling Integumentary: No rashes, No breakdown Neurological: Normal speech, Normal strength at 5/5 x4 extr, Normal tone, Sens ation intact, Cranial nerves 3-12 intact - Studies Laboratory Data (last 24 hrs) 11/01/24 11/01/24 17:45 17:45 WBC 6.90 Hgb 16.7 Hct 47.0 Plt Count 222 Sodium 136 Potassium 4.0 BUN 15 Creatinine 1.16 Glucose 99 Magnesium 2.2 Total Bilirubin 2.1 H AST 23 ALT 34 Alkaline Phosphatase 72 Assessment and Plan - Plan Impression Acute UTI Acute dizzinesslikely due to UTI Sinus bradycardia History of ADHD Elevated troponinasymptomatic Plan We admit patient to observation Start gentle IV fluid Obtain TSH and magnesium level Start empirical antibiotics with Rocephin Placed on telemetry Serial sets of cardiac enzymes, start empirical aspirin for now although no chest pain If rising troponin level or persistent bradycardia on telemetry will need cardiology consult in a.m. Expected dizziness to resolve with IV fluid and antibiotics, if persistent might need MRI brain Lovenox for DVT prophylaxis Disposition possible hospital stay for 1 to 2 days Discharge Plan: Home Plan to discharge in: 24 Hours - Advance Directives Does patient have a Living Will: No Does patient have a Durable POA for Healthcare: No - Code Status/Comfort Care Code Status: Full Code Physician Review: Patient Assessed, Agree with Above Assessment and Plan Time Spent Managing Pts Care (In Minutes): 70
[2024-11-01] MEDS ORDERED: MORPHINE 2 MG/ML SYR IV PRN (19:48)
[2024-11-01] MEDS ORDERED: ALBUTEROL 2.5 MG/3 ML NEB SOL NEB PRN (19:48)
[2024-11-01] MEDS ORDERED: ONDANSETRON 4 MG/2 ML VIAL IV PRN (19:48)
[2024-11-01] MEDS ORDERED: ACETAMINOPHEN 500 MG TAB PO PRN (19:48)
[2024-11-01] MEDS ORDERED: HYDRALAZINE HCL 20 MG/ML VIAL IV PRN (19:51)
[2024-11-01] MEDS: CEFTRIAXONE 1,000 MG in NA CHLORIDE 0.9% 50 ML IVPB SCH (19:52)
[2024-11-01] MEDS: ASPIRIN EC 81 MG TAB PO SCH (19:53)
[2024-11-01 21:39] LABS: SARS-CoV-2 Antigen CONTROL BLUE LINE VIS/BG OK; SARS-CoV-2 Antigen Rapid Res Negative (Negative)
[2024-11-01 22:03] VITALS: BMI 24.9
[2024-11-01] MEDS: FAMOTIDINE 20 MG TAB PO SCH (22:23)
[2024-11-01] MEDS: NA CHLORIDE 0.9% 1,000 ML IV SCH (22:24)
[2024-11-02 00:27] LABS: Magnesium 2.1 mg/dL (1.6-2.4)
[2024-11-02 00:31] LABS: Troponin High Sensitivity 78.7 pg/mL (<58.9)
[2024-11-02 01:30] VITALS: O2SAT 98
[2024-11-02 07:13] LABS: Absolute Basophils 0.1 K/uL (0-0.5); Absolute Eosinophils 0.2 K/uL (0-0.5); Absolute Lymphocytes (CBC) 2.2 K/uL (0.7-4.9); Absolute Monocytes 0.5 K/uL (0.1-1.3); Absolute Neutrophil 3.2 K/uL (1.8-8.0); Basophils % 1.1 % (0-1.3); Eosinophils % 3.8 % (0-4.4); Hematocrit 41.8 % (39.6-49.0); Hemoglobin 14.6 g/dL (13.6-17.9); Lymphocytes % 35.4 % (15.3-44.8); MCH 30.7 pg (27.0-35.0); MCHC 34.9 g/dL (32.0-36.0); MPV 9.6 fL (7.6-11.3); Monocytes % 8.4 % (3.3-12.3); Neutrophils % 51.3 % (41.7-73.7); Platelets 197 thou/uL (152-406); RBC Red Blood Cell Count 4.75 M/uL (4.33-5.43); Red Cell Distribution Width 12.4 % (12.1-15.2)
[2024-11-02] MEDS ORDERED: ALBUTEROL 2.5 MG/3 ML NEB SOL NEB PRN (07:31)
[2024-11-02 07:34] LABS: Albumin 3.2 g/dL (3.4-5.0); Anion Gap 8.8 mEq/L (5.0-15.0); Bilirubin Total 1.1 mg/dL (0.2-1.0); Globulin 3.1 g/dL (2.3-3.5); Potassium 3.8 mEq/L (3.5-5.1); Protein, Total 6.3 g/dL (6.4-8.2)
[2024-11-02] MEDS: FLU (Fluarix Triv) TS24-25(6MOS UP)/PF 45 MCG/0.5 ML Syringe IM ONE (08:00)
[2024-11-02] MEDS: ENOXAPARIN 40 MG/0.4 ML SQ SCH (09:06)
[2024-11-02] MEDS ORDERED: ACETAMINOPHEN 325 MG TABLET PO PRN (10:42)
--- NOTE | 2024-11-02 11:49 | RAD REPORT ---
EXAMINATION: CTA CHEST PE CLINICAL INDICATION: Male, 39 years old. Elev trop TECHNIQUE: This examination was performed according to an angiographic protocol with 3D post-processi ng. This involves 3D reconstructions, MIPs, volume rendered images and/or shaded surface rendering. One or more of the following dose reduction techniques were used: Automated exposure control, adjustm ent of the mA and/or kV according to patient size, and/or iterative reconstruction. Unless otherwise specified, incidental findings do not require dedicated imaging follow-up. [id number]. COMPARISON: Chest radiograph 11/01/2024 FINDINGS: LOWER NECK: Visualized thyroid gland and soft tissues are normal. LUNGS AND AIRWAYS: Minimal subpleural opacities in the left lower lobe likely reflecting atelectasis. No evidence of acute consolidative pneumonia. No pulmonary edema.No suspicious and/or stable pulmonary nodules. PLEURA: No pleural effusion. No pneumothorax. Hemidiaphragms are normally positioned. MEDIASTINUM AND LYMPH NODES: No mediastinal mass or fluid collection. Normal size mediastinal, hilar, and axillary lymph nodes. Mild distal esophageal thickening. THORACIC AORTA: No thoracic aortic aneurysm. PULMONARY ARTERIES: Caliber is within normal limits. HEART: Normal heart size. No coronary calcifications.No significant pericardial effusion. OSSEOUS STRUCTURES AND CHEST WALL: No fracture or suspicious osseous lesions. UPPER ABDOMEN: See separate report IMPRESSION: No evidence of pulmonary emboli to the subsegmental level. Likely atelectasis at the left lung base..
--- NOTE | 2024-11-02 11:51 | RAD REPORT ---
EXAMINATION: CT ABDOMEN AND PELVIS WITH CONTRAST CLINICAL INDICATION: Male, 39 years old.UTI, pain TECHNIQUE: CT abdomen and pelvis was performed, after the administration of IV contrast, as per [facility]. Axial, sagittal and coronal reconstructions were obtained. One or more of the following dose reduction techniques were used: Automated exposure control, adjustment of the mA and/o r kV according to patient size, and/or iterative reconstruction. Unless otherwise specified, incidental findings do not require dedicated imaging follow-up. [id number]. COMPARISON: No prior exam. FINDINGS: LOWER CHEST: See separate report UPPER GI: No significant abnormality. LIVER: No significant focal abnormality. GALLBLADDER/BILE DUCTS: No biliary ductal dilatation.? PANCREAS: No mass, ductal dilation, or sindhu-pancreatic fluid. SPLEEN: Unremarkable. ADRENALS: No adrenal masses. KIDNEYS AND URETERS: No hydronephrosis.No suspicious renal mass. ABDOMINAL AORTA AND OTHER VESSELS: Normal caliber aorta and IVC. PERITONEUM: No abnormal free fluid. No free air. LYMPH NODES: No pathologic lymphadenopathy. ABDOMINAL WALL: Unremarkable SMALL BOWEL/COLON: Small bowel has normal course and caliber. No colonic wall thickening or pericolon ic inflammatory changes.Normal appendix. URINARY BLADDER: Mild nonspecific circumferential bladder wall thickening. REPRODUCTIVE ORGANS: No pathologic process. MUSCULOSKELETAL: No acute or suspicious osseous abnormality. ADDITIONAL FINDINGS: None. IMPRESSION: No acute or significant abnormalities seen in the abdomen or pelvis. Normal appendix
--- NOTE | 2024-11-02 12:38 | RAD REPORT ---
EXAMINATION: US CAROTID DUPLEX CLINICAL INDICATION: , 39 years old. dizziness. TECHNIQUE: Real-time grayscale, color flow and spectral Doppler sonographic images were obtained of t extracranial carotid system using a linear transducer. [id number]. COMPARISON: No prior exam. FINDINGS: RIGHT: Common carotid artery: 123 cm/s Internal carotid artery: 85 cm/s External carotid artery: 88 cm/s Right ICA/CCA ratio: 0.7 Plaque None Vertebral artery Antegrade LEFT: Common carotid artery: 132 cm/s Internal carotid artery: 116 cm/s External carotid artery: 137 cm/s lEFT ICA/CCA ratio: 0.9 Plaque None Vertebral artery Antegrade IMPRESSION: No hemodynamically significant stenosis (greater than 50%) within the extracranial internal carotid [facility].
[2024-11-02] MEDS: ACETAMINOPHEN 500 MG TAB PO ONE (12:42)
[2024-11-02] MEDS: levoFLOXacin 500 MG TAB PO SCH (13:24)
--- NOTE | 2024-11-02 14:06 | P.PN ---
Date of Service: 11/02/24 subjective He reports dizziness, slightly improved, no reported shortness of breath or chest pain, no reported dysuria Review of Systems 10 point review of system negative unless listed in HPI Physical Examination - Physical Exam vital signs Reviewed General: Alert, In no apparent distress, Oriented x3, Cooperative, HEENT: Atraumatic, Normocephalic, PERRLA Neck: Supple, 2+ carotid pulse no bruit, JVD not distended Respiratory: Clear to auscultation bilaterally, Normal air movement Cardiovascular: No edema, Normal pulses, Regular rate/rhythm, Normal S1 S2 Capillary refill: <2 Seconds Gastrointestinal: Normal bowel sounds, Soft and benign, Non-distended, No ascites Musculoskeletal: No clubbing, No swelling Integumentary: No rashes, No breakdown Neurological: Normal speech, Normal strength at 5/5 x4 extr, Normal tone, Sensation intact, Cranial nerves 3-12 intact Assessment and Plan - Plan Acute cystitis /acute UTI Acute dizziness Start gentle IV fluid, ceftriaxone Trend urine culture Carotid Dopplers negative Order echo, MRI in the a.m. for dizziness-if not resolved with IV fluids, IV Sinus bradycardia Telemetry History of ADHD Resume home med Elevated troponinasymptomatic Left lower lobe opacity/atelectasis Educated on how to use incentive spirometer Start Levaquin, CT of the chest IMPRESSION: No evidence of pulmonary emboli to the subsegmental level. Likely atelectasis at the left lung base. Minimal subpleural opacities in the left lower lobe likely reflecting atelectasis. No evidence of acute consolidative pneumonia. No pulmonary edema.No suspicious and/or stable pulmonary nodules. Placed on telemetry Serial sets of cardiac enzymes, start empirical aspirin for now although no chest pain TSH within normal limit and hypo-magnesium level/replace magnesium p.o. twice daily Start empirical antibiotics with Rocephin - Advance Directives Does patient have a Living Will: No Does patient have a Durable POA for Healthcare: No - Code Status/Comfort Care Code Status: Full Code Physician Review: Patient Assessed, Agree with Above Assessment and Plan Time Spent Managing Pts Care (In Minutes): 35 Discharge Plan: Home Plan to discharge in: 48 hours
[2024-11-02] MEDS: MAGNESIUM OXIDE 400 MG TAB PO SCH (16:27)
[2024-11-03] MEDS: MECLIZINE HCL 12.5 MG TAB PO ONE (07:42)
--- NOTE | 2024-11-03 10:39 | RAD REPORT ---
EXAMINATION: MRI BRAIN WITHOUT CONTRAST CLINICAL INDICATION: Vertigo TECHNIQUE: Multiplanar multisequence MR images of the brain were obtained without intravenous contras t. Unless otherwise specified, incidental findings do not require dedicated imaging follow-up. COMPARISON: 11/01/2024 FINDINGS: INTRACRANIAL: Diffusion-weighted images show no acute or early subacute infarction. No abnormal brain parenchymal signal. The ventricles are normal in size and morphology. No augmented susceptibility. There is no mass effect or midline shift. No abnormal extraaxial fluid collection. VASCULATURE: Normal signal voids in the larger intracranial arteries and dural venous sinuses. SINUSES: The paranasal sinuses and mastoid air cells are predominantly clear. BONE: The marrow signal pattern is within normal limits. IMPRESSION: Negative for acutre CVA or other acute intracranial finding.
--- NOTE | 2024-11-03 13:32 | P.PN ---
Subjective Date of Service: 11/03/24 Chief Complaint: Dizziness Subjective: No new changes Patient complaining of persistent dizziness/vertigo, he described the dizziness as sometimes lightheadedness or unsteady gait upon standing. He admitted to presyncopal but not syncopal attack. Denied any chest pain or dyspnea or productive cough or headache. Review of Systems Other: Consitutional; fever(-), chills (-), rigor(-), night sweat(-), unintentional weight loss(-), malaise (-) HEENT; diplopia (-), rhinorrhea (-), epistaxis (-), otorrhea (-), otalgia (-) Respiratory; shortness of breath (-), wheezing (-), cough (-), sputum (-), pleuritic chest pain (-) Cardiovascular; chest pain (-), peripheral edema (-), paroxysmal nocturnal dyspnea (-), orthopnea (-) Gastrointestinal; nausea (-), vomiting (-), abdominal pain (-), diarrhea (-), constipation (-), melena (-), hematochezia (-) Genitourinary; urinary frequency (-), dysuria (-), urgency (-), flank pain (-), gross hematuria (-), incontinence (-) Skin; rash (-), pruritus (-) PRIZE COORDINATOR; headache (-), paresthesia (-), numbness (-), paralysis (-) Physical Examination - Vital Signs Temperature: 98.0 F Blood Pressure: 126/68 Pulse: 56 Respirations: 16 Pulse Ox (%): 99 - Physical Exam Other Physical/Emotional Findings: - Physical Exam. General: Not acutely ill looking, in no apparent distress,. HEENT: Normocephalic, atraumatic, nonicteric sclera, nonanemic conjunctive. Neck: Supple, without JVD or goiter or thyroid mass. Respiratory: Normal breathing effort, clear to auscultation bilaterally, no crackles no wheezing or rhonchi. Cardiovascular: Regular rate and rhythm, S1, S2 normal, no murmur no gallop. Gastrointestinal: Normal bowel sounds, nondistended, nontender, No ascites, , No masses, no hepatosplenomegaly. Extremities : No clubbing, No peripheral edema, full range of motion, no deformity, no muscle atrophy. Integumentary: No rashes, petechia, suspected lesions. Lymphatics: No axilla or cervical lymphadenopathy. Neurology; alert awake oriented x3, no focal neurologic deficit, normal affection . mood and behavior. A vertical nystagmus on lateral gaze Assessment And Plan - Plan 39-year-old male with past medical history of ADHD on Metadate daily presented for dizziness since the last 3 days, worse in the morning, associated with intermittent generalized headache. Patient denies any loss of consciousness. He admitted to nausea and vomiting since the last 1 day. #[address] and MRI of the brain, I will check orthostatic blood pressure, continue IV hydration and meclizine #2 mild sinus bradycardia, Telemetry shows sinus bradycardia with heart rate 50 to 60/min, mildly elevated troponin plateaued up to 70-80, I will order a transthoracic echocardiogram to rule out obstructive cardiomyopathy #3 abnormal urinalysis without UTI No urinary symptoms, urine culture negative, I will discontinue empiric antibiotics today DVT prophylaxis; low risk of thromboembolism, I will discontinue enoxaparin subcu Physician Review: Patient Assessed, Agree with Above Assessment and Plan
[2024-11-04 08:32] VITALS: BP 131/63; TEMP 97.6
--- NOTE | 2024-11-04 10:31 | P.DS ---
Admission Date: 11/01/24 Discharge Date: 11/04/24 Disposition: ROUTINE DISCHARGE Discharge Condition: GOOD Reason for Admission: Dizziness Brief History of Present Illness: This is a 39-year-old male with past medical history of ADHD on Metadate daily presented for dizziness since the last 3 days, worse in the morning, associated with intermittent generalized headache. Patient denies any loss of consciousness. He admitted to nausea and vomiting since the last 1 day. Hospital Course: Patient was complaining of nonspecific dizziness, partially responsive to IV fluid and meclizine. His hospital course was uneventful. There was no episode of syncope or serious cardiac arrhythmia on telemetry. Patient is being discharged home after transthoracic echocardiogram. He will follow-up with PCP for the results of transthoracic echocardiogram as outpatient. #[address] and MRI of the brain, no orthostatic hypotension. Partially responded to IV hydration and meclizine #2 mild sinus bradycardia, Telemetry shows sinus bradycardia with heart rate 50 to 60/min, #3 nonspecific mildly elevated troponin Troponin up to 70-80 plateaued. No clinical suspicion for acute coronary syndrome, transthoracic echocardiogram ordered to rule out obstructive or infiltrative cardiomyopathy #3 abnormal urinalysis without UTI No urinary symptoms, urine culture negative, empiric antibiotics discontinued. Vital Signs/Physical Exam: Temp Pulse Resp BP Pulse Ox 97.6 F 50 18 131/63 97 11/04/24 08:00 11/04/24 08:00 11/04/24 08:00 11/04/24 08:00 11/04/24 08:00 Other Physical/Emotional Findings: - Physical Exam. General: Not acutely ill looking, in no apparent distress,. HEENT: Normocephalic, atraumatic, nonicteric sclera, nonanemic conjunctive. Neck: Supple, without JVD or goiter or thyroid mass. Respiratory: Normal breathing effort, clear to auscultation bilaterally, no crackles no wheezing or rhonchi. Cardiovascular: Regular rate and rhythm, S1, S2 normal, no murmur no gallop. Gastrointestinal: Normal bowel sounds, nondistended, nontender, No ascites, , No masses, no hepatosplenomegaly. Extremities : No clubbing, No peripheral edema, full range of motion, no deformity, no muscle atrophy. Integumentary: No rashes, petechia, suspected lesions. Lymphatics: No axilla or cervical lymphadenopathy. Neurology; alert awake oriented x3, no focal neurologic deficit, normal affection . mood and behavior. A vertical nystagmus on lateral gaze Laboratory Data at Discharge: WBC 6.30 thou/uL (4.3-10.9) 11/02/24 06:53 Hgb 14.6 g/dL (13.6-17.9) D 11/02/24 06:53 Hct 41.8 % (39.6-49.0) 11/02/24 06:53 Plt Count 197 thou/uL (152-406) 11/02/24 06:53 Sodium 139 mEq/L (136-145) 11/02/24 06:53 Potassium 3.8 mEq/L (3.5-5.1) 11/02/24 06:53 BUN 15 mg/dL (7-18) 11/02/24 06:53 Creatinine 1.21 mg/dL (0.70-1.30) 11/02/24 06:53 Glucose 96 mg/dL (74-106) 11/02/24 06:53 Magnesium 2.1 mg/dL (1.6-2.4) 11/01/24 23:55 Total Bilirubin 1.1 mg/dL (0.2-1.0) H 11/02/24 06:53 AST 16 U/L (15-37) 11/02/24 06:53 ALT 26 U/L (16-61) 11/02/24 06:53 Alkaline Phosphatase 62 U/L (45-117) 11/02/24 06:53 Home Medications: Loratadine/Pseudoephedrine [Claritin-D 24 Hour Tablet] 1 each PO PRN PRN 10/11/17 Physician Discharge Instructions: OK TO DC IV AND DC HOME FOLLOW-UP WITH PRIMARY CARE PROVIDER IN 1-2 WEEKS FOLLOW-UP WITH CARDIOLOGY IN 1-2 WEEKS RETURN TO THE ER IF symptoms worsen CALL DR. DIAL AT [phone] IF ANY QUESTIONS REGARDING HOSPITAL STAY. PLEASE CALL THE FLOOR AT [phone] IF ANY MEDICATION OR NURSING QUESTIONS. Diet: AHA Activity: Fall precautions Followup: Alisha Jo NP [Primary Care Provider] -
--- NOTE | 2024-11-05 12:42 | EKG ---
Test Date: 2024-11-01 Test Time: 18:28:07 Clinical Support Specialist: ZUNILDA MEASUREMENT RESULTS: Intervals: Rate: 63 OR: 148 QRSD: 98 QT: 440 QTc: 450 [facility]: P: -25 OR: 148 QRS: 71 T: 44 INTERPRETIVE STATEMENTS: Normal sinus rhythm Normal ECG No previous ECG available for comparison Electronically Signed On 11-05-24 12:35:15 WINDOWS PHONE DEVELOPER by Johnson Robles
== END 2024-11-04 11:19 | disposition home or self-care (01) | DRG 149 ==
LOC: ER 16:25 → ERHOLD 19:48 → 2ND 21:02
PROVIDERS: ADMIT Internal Medicine; ATTEND Internal Medicine
DX: R42 Dizziness and giddiness (principal); J98.11 Atelectasis; F90.9 Attention-deficit hyperactivity disorder, unspecified type; R00.1 Bradycardia, unspecified; R79.89 Other specified abnormal findings of blood chemistry; Z11.52 Encounter for screening for COVID-19; Z79.899 Other long term (current) drug therapy
CPT/HCPCS: 36415; 70450; 70551; 71045; 71275; 74177; 80048; 80053; 80076; 80307; 81001; 82550; 83605; 83735; 84443; 84484; 85025; 87040; 87086; 87088; 87804; 87811; 93005; 93880; 99285; J0696; J1200; J1650; J2765; J7030; J8597; Q9967